=== PATIENT | female | born 1990 | race Caucasian/White ===

== ENCOUNTER 2019-06-12 17:41 | Emergency (ER) | payer SELFPAY ==
[2019-06-12] MEDS ORDERED: HYDROcod/ACET 5/325 Prepack 4 PO STA (18:04)
[2019-06-12] MEDS ORDERED: AMOX/CLAV 875 MG/125 MG TABLET PO STA (18:04)
[2019-06-12] MEDS ORDERED: HYDROcod/ACETAM 5/325 MG TABLET PO STA (18:04)
--- NOTE | 2019-06-12 18:07 | ED Physician Documentation ---
History of Present Illness - Stated complaint Stated Complaint: DOG BITE - RT HAND - Chief complaint Chief Complaint: General - History obtained from History obtained from: Patient - History of Present Illness Timing: Today (She broke up with a dog fight at her home, both dogs were healthy and fully immunized. She is up-to-date on tetanus. She has multiple bites over the right hand. No other injuries.) Review of Systems Constitutional: reports: Reviewed and negative Nose: reports: Reviewed and negative Throat: reports: Reviewed and negative Cardiac: reports: Reviewed and negative PD PAST MEDICAL HISTORY - Past Medical History Past Medical History: No - Past Surgical History Past Surgical History: No - Present Medications Home Medications: Ambulatory Orders Medication Instructions Recorded Confirmed Amox/Clav 875/125 [Augmentin] 1 each PO Q12H #14 tablet 06/12/19 Bacitracin Zinc Oint 1 applic TOP BID #1 tube 06/12/19 - Allergies Allergies/Adverse Reactions: Allergies Allergy/AdvReac Type Severity Reaction Status Date / Time No Known Drug Allergies Allergy Verified 06/12/19 17:47 - Social History Does the pt smoke?: No Smoking Status: Never smoker Does the pt drink ETOH?: No Does the pt have substance abuse?: No Substance Use and Type: Marijuana - Immunizations Immunizations are current?: Yes - POLST Patient has POLST: No PD ED PE NORMAL - Vitals Vital signs reviewed: Yes - General General: Alert and oriented X 3, No acute distress - HEENT HEENT: PERRL, EOMI - Extremities Extremities: Other (Multiple puncture wounds about the right hand, one on the thumbnail dorsally, one on the palm near the third metacarpal head, a couple on the ulnar side of the right pinky. None are deep. Not needing suturing. There is no limited range of motion or bony tenderness. No neurovascular compromise in any of the digits.) - Neuro Neuro: Alert and oriented X 3, Normal speech Results - Vitals Vitals: Vital Signs - 24 hr 06/12/19 06/12/19 17:45 18:48 Temperature 37 C 36.8 C Heart Rate 104 H 78 Respiratory 20 19 Rate Blood Pressure 124/85 H 97/65 O2 Saturation 100 99 Oxygen O2 Source Room air - Rads (name of study) R hand XR Radiology: EMP read contemporaneously (nl) PD MEDICAL DECISION MAKING - ED course ED course: Multiple shallow puncture and scratches from a dog bite in the right hand which were cleansed and dressed. Placed on Augmentin. Departure - Departure Disposition: 01 Home, Self Care Clinical Impression: Dog bite of multiple sites of hand and fingers Qualifiers: Encounter type: initial encounter Laterality: right Qualified Code(s): S61.451A - Open bite of right hand, initial encounter Condition: Good Record reviewed to determine appropriate education?: Yes Instructions: ED Bite Dog Prescriptions: Amox/Clav 875/125 [Augmentin] 1 each PO Q12H #14 tablet Bacitracin Zinc Oint 1 applic TOP BID #1 tube Comments: Keep the wounds dressed with bandages and bacitracin ointment which is prescribed. Return for new or worsening symptoms especially signs of infection which would include redness swelling drainage or increased pain. Elevate as much as possible. Discharge Date/Time: 06/12/19 18:52
[2019-06-12] MEDS ORDERED: BACITRACIN OINT TOP STA (18:39)
[2019-06-12 18:49] VITALS: BP 97/65
--- NOTE | 2019-06-12 18:51 | XRAY Report ---
Reason: mult dog bites Procedure Date: 06/12/2019 Accession Number: [id number] / [id number] Procedure: XR - Hand 3 View RT CPT Code: Final Report FULL RESULT: EXAM: RIGHT HAND RADIOGRAPHY EXAM DATE: 06/12/2019 06:23 PM. CLINICAL HISTORY: Mult dog bites. COMPARISON: WRIST 4 VIEW RT 07/11/2014 3:30 PM. TECHNIQUE: 3 views. FINDINGS: Bones: Normal. No fractures or bone lesions. Joints: Normal. No subluxations. Soft Tissues: No radiopaque foreign bodies. No soft tissue swelling. IMPRESSION: Normal hand radiography. [facility]
== END 2019-06-12 18:52 | disposition home or self-care (01) ==
LOC: ED 17:41
DX: S61.451A Open bite of right hand, initial encounter (principal); S61.051A Open bite of right thumb without damage to nail, initial encounter; S61.256A Open bite of right little finger without damage to nail, initial encounter; W54.0XXA Bitten by dog, initial encounter; Y93.89 Activity, other specified; Y92.009 Unspecified place in unspecified non-institutional (private) residence as the place of occurrence of the external cause
CPT/HCPCS: 73130; 99283; A9270

== ENCOUNTER 2020-08-21 13:20 | Outpatient (CLI) | payer SELFPAY | END 2020-08-21 13:21 | disposition home or self-care (01) | LOC: COV 13:20 | PROVIDERS: ATTEND Family Medicine | DX: R06.00 Dyspnea, unspecified (principal); M79.10 Myalgia, unspecified site; R53.83 Other fatigue; R68.83 Chills (without fever); R07.0 Pain in throat; R43.9 Unspecified disturbances of smell and taste; R09.81 Nasal congestion; J34.89 Other specified disorders of nose and nasal sinuses; R11.0 Nausea; Z20.822 Contact with and (suspected) exposure to COVID-19 ==

== ENCOUNTER 2023-11-02 12:37 | Outpatient (CLI) | payer OTHER ==
[2023-11-02 14:41] LABS: BASOPHILS # (AUTO) 0.1 10^3/uL (0.0-0.1); BASOPHILS % (AUTO) 0.6 %; EOSINOPHILS # (AUTO) 0.1 10^3/uL (0.0-0.7); EOSINOPHILS % (AUTO) 0.8 %; HCT - HEMATOCRIT 41.9 % (37.0-47.0); LYMPHOCYTES # (AUTO) 2.3 10^3/uL (1.5-3.5); LYMPHOCYTES % (AUTO) 25.4 %; MEAN CORPUSCULAR HEMOGLOBIN 29.4 pg (27.0-31.0); MEAN CORPUSCULAR HGB CONC 33.4 g/dL (32.0-36.0); MEAN PLATELET VOLUME 10.4 fL (7.9-10.8); MONOCYTES # (AUTO) 0.8 10^3/uL (0.0-1.0); MONOCYTES % (AUTO) 8.3 %; NEUTROPHILS # (AUTO) 5.9 10^3/uL (1.5-6.6); NEUTROPHILS % (AUTO) 64.7 %; PLT - PLATELET COUNT 250 10^3/uL (130-450); RED BLOOD COUNT 4.76 10^6/uL (4.20-5.40); RED CELL DISTRIBUTION WIDTH 11.7 % (12.0-15.0); WHITE BLOOD COUNT 9.1 x10^3/uL (4.8-10.8)
[2023-11-02 14:53] LABS: ALBUMIN 4.6 g/dL (3.2-5.5); ALBUMIN/GLOBULIN RATIO 1.6 (1.0-2.2); BILIRUBIN,TOTAL 0.8 mg/dL (0.2-1.0); CALCIUM 10.2 mg/dL (8.5-10.3); CREATININE 0.7 mg/dL (0.6-1.3); POTASSIUM 4.1 mmol/L (3.5-4.5); TOTAL PROTEIN 7.5 g/dL (6.4-8.9)
[2023-11-02 15:03] LABS: THYROID STIMULATING HORMONE 2.93 uIU/mL (0.34-5.60)
[2023-11-02 15:07] LABS: FERRITIN 39.7 ng/mL (11.0-306.8)
[2023-11-02 20:51] LABS: ESTIMATED AVERAGE GLUCOSE 91 mg/dL (70-100); HEMOGLOBIN A1c% 4.8 % (4.27-6.07)
== END 2023-11-02 12:38 | disposition home or self-care (01) ==
LOC: LAB.S 12:37
PROVIDERS: ATTEND Registered Nurse
DX: H69.83 Other specified disorders of Eustachian tube, bilateral (principal); H53.9 Unspecified visual disturbance; R55 Syncope and collapse; R42 Dizziness and giddiness
CPT/HCPCS: 36415; 80053; 82728; 83036; 83540; 84443; 84466; 85025